=== PATIENT | female | born 1965 | race Caucasian/White ===

== ENCOUNTER 2016-08-11 15:14 | Emergency (ER) | payer BC ==
--- NOTE | ~2016-08-11 | CR63 ---
[facility] A Service of [facility] RADIOLOGY TEXT RESULTS PATIENT: MAGALIE LOZA LOCATION: SED : 61 UNIT #: [id number] AGE: [address]: Abhinav Dhillon MD SEX: F ORDER DR: [id number] [address] [address] [id number] MR#: [id number] Acc #: [id number] NAME: MAGALIE LOZA : 1965 SEX: F STUDY DATE/TIME: 08/11/2016 16:14 UNIT: SED ROOM: STUDY DESCRIPTION: CR Chest 2 View Attending Physician: Abhinav Dhillon M.D. Ordering Physician: Abhinav Dhillon M.D. Primary Care Physician: Heladio Saavedra M.D. MEDICAL IMAGING REPORT This report is preliminary unless electronic signature is present. EXAM Chest x-ray HISTORY Fever, hypertension and chest and back pain radiating to the scapula on the right for the past 2 days. TECHNIQUE 2 views the chest were obtained. COMPARISON STUDIES 01/30/2009. FINDINGS PA and lateral examination of the chest upright shows a good expansion of the parenchyma with a normal distribution of the pulmonary vascularity. There is no indication of congestion, effusion, infiltrate, tumor, or nodular density. The pleural reflections and diaphragmatic contours are normal. The cardiac silhouette and mediastinal anatomy is within normal limits. IMPRESSION Normal chest. Dictated by... Arnoldo Holley M.D. THIS IS AN ELECTRONICALLY VERIFIED REPORT Arnoldo Holley M.D. at 08/12/2016 6:47 AM RLF/pcl [facility] A Service of [facility] RADIOLOGY TEXT RESULTS PATIENT: MAGALIE LOZA LOCATION: SED : 61 UNIT #: [id number] AGE: [address]: Abhinav Dhillon MD SEX: F ORDER DR: TD: 08/11/2016 21:15 JOB #: [id number] MEDICAL IMAGING REPORT Page 1 of 1
[~2016-08-11 15:14] MED LIST: AMOXICILLIN PO; ATENOLOL; ATENOLOL PO; HYDROCODONE-APA1 T33 PO; LORTAB ELIXIR15 ML PO; LORTAB PO; NILSTAT PO
== END 2016-08-11 17:27 | disposition home or self-care (01) ==
LOC: SED 15:14
DX: M54.5 Low back pain (principal); R50.9 Fever, unspecified; R03.0 Elevated blood-pressure reading, without diagnosis of hypertension; F17.210 Nicotine dependence, cigarettes, uncomplicated; Z88.8 Allergy status to other drugs, medicaments and biological substances; Z79.899 Other long term (current) drug therapy
CPT/HCPCS: 71020; 99283